=== PATIENT | male | born 1995 | race Hispanic/Latino ===

== ENCOUNTER 2022-09-06 18:39 | Emergency (ER) | payer BC ==
[~2022-09-06] VITALS: Ht 177.8 cm; Wt 88.9 kg
[2022-09-06] MEDS ORDERED: DICYCLOMINE 20MG (10MG/ML) AMP IM STA (18:46)
[2022-09-06] MEDS ORDERED: FAMOTIDINE 20MG VIAL IV ONE (19:00)
[2022-09-06] MEDS ORDERED: MORPHINE 2 MG SYG IVP SCH (19:00)
[2022-09-06] MEDS ORDERED: 0.9%NACL 1000ML 1,000 ML IV ONE (19:00)
[2022-09-06] MEDS ORDERED: ONDANSETRON 4MG INJ IVP ONE (19:00)
[2022-09-06 19:13] LABS: BASOPHILS % (AUTO) 0.9 % (0.0-5.0); EOSINOPHILS % (AUTO) 1.8 % (0.0-8.0); HEMATOCRIT 44.5 % (42-54); LYMPHOCYTES % (AUTO) 34.7 % (21.0-51.0); MEAN CORPUSCULAR HEMOGLOBIN 30.9 pg (27.0-33.0); MEAN CORPUSCULAR HGB CONC 35.5 g/dL (32.0-36.0); MEAN CORPUSCULAR VOLUME 87.1 fL (79-99); MONOCYTES % (AUTO) 7.3 % (3.0-13.0); NEUTROPHILS % (AUTO) 54.8 % (40.0-77.0); PLATELET COUNT (AUTO) 249 K/uL (130-400); RED BLOOD CELL COUNT(AUTO) 5.11 MIL/uL (4.50-6.20); RED CELL DISTRIBUTION WIDTH 12.1 % (11.0-15.5); WHITE BLOOD COUNT (AUTO) 5.6 K/uL (4.8-10.8)
[2022-09-06 19:27] LABS: ALBUMIN 3.8 g/dL (3.5-5.0); TOTAL PROTEIN, SERUM 7.8 g/dL (6.0-8.3)
[2022-09-06 19:54] LABS: APPEARANCE,URINE CLEAR (CLEAR); BILIRUBIN,URINE NEGATIVE (NEGATIVE); COLOR,URINE COLORLESS (YELLOW); GLUCOSE, URINE (UA) >=1000 mg/dL (NEGATIVE); KETONES,URINE 10 mg/dL (NEGATIVE); LEUKOCYTE ESTERASE ,URINE NEGATIVE Leu/uL (NEGATIVE); NITRATE,URINE NEGATIVE (NEGATIVE); OCCULT BLOOD,URINE NEGATIVE (NEGATIVE); PH,URINE 7.5 (5.0-8.0); PROTEIN,URINE NEGATIVE (NEGATIVE); UROBILINOGEN,URINE 0.2 mg/dL (0.2-1.0)
[2022-09-06 20:02] LABS: RBC,URINE 0-1 /HPF (0-1); WBC,URINE 0-1 /HPF (0-1)
[2022-09-06] MEDS ORDERED: INSULIN HUMULIN R 100 UNIT/ML 3ML IV SCH (21:00)
[2022-09-06] MEDS ORDERED: AZIT500T2 PO (21:03)
[2022-09-06] MEDS ORDERED: ONDA4TAB10 PO (21:03)
[2022-09-06] MEDS ORDERED: DICY20TA2 PO (21:03)
[2022-09-06] MEDS ORDERED: BACI1CAP6 PO (21:03)
[2022-09-06 21:42] VITALS: BP 135/74
== END 2022-09-06 22:00 | disposition home or self-care (01) ==
LOC: EDH 18:39
DX: E11.65 Type 2 diabetes mellitus with hyperglycemia (principal); K52.9 Noninfective gastroenteritis and colitis, unspecified; J18.9 Pneumonia, unspecified organism; Z87.19 Personal history of other diseases of the digestive system; Z88.8 Allergy status to other drugs, medicaments and biological substances
CPT/HCPCS: 99284; 74176; 96374; 96375; 80053; 83690; 85025; 82948; 81001; 36415; 96372; J1815; J3490; J2405; J0500

== ENCOUNTER 2023-06-11 22:02 | Emergency (ER) | payer BC, OTHER ==
[~2023-06-11] VITALS: Ht 177.8 cm; Wt 90.7 kg
[~2023-06-11 22:02] MED LIST: AZIT500T2 PO; BACI1CAP6 PO; CYCL-309 PO; DICY20TA2 PO; IBUP-1493 PO; ONDA4TAB10 PO
[2023-06-11 22:21] VITALS: BP 130/81; PULSE 93; RESP 18
== END 2023-06-12 03:05 | disposition left against medical advice (07) ==
LOC: EDH 22:02
DX: R10.9 Unspecified abdominal pain (principal); Z53.21 Procedure and treatment not carried out due to patient leaving prior to being seen by health care provider